=== PATIENT | male | born 1950 | race Caucasian/White ===

== ENCOUNTER 2018-02-09 10:26 | Emergency (ER) | payer BC, MEDICARE, OTHER ==
[~2018-02-09] VITALS: Ht 180.3 cm; Wt 91.5 kg
[~2018-02-09 10:26] MED LIST: DICL50 PO; LEVA500T33 PO; LORTA5 PO; PREG300 PO
[2018-02-09 10:28] VITALS: BP 148/80; PULSE 86; RESP 18; TEMP 98; O2SAT 100
[2018-02-09] MEDS ORDERED: GABA300C5 PO (10:34)
[2018-02-09] MEDS ORDERED: LIDOCAINE 2% JELLY 30 ML TUBE TOPICAL ONE (11:15)
[2018-02-09] MEDS ORDERED: NORC5TAB PO (11:20)
[2018-02-09] MEDS ORDERED: ANUC25SU RECTAL (11:20)
[2018-02-09] MEDS ORDERED: METR-1 PO (11:21)
[2018-02-09] MEDS ORDERED: CIPR-9 PO (11:21)
--- NOTE | 2018-02-09 11:21 | PD ---
HPI Chief Complaint: Skin Problem Time Seen by Provider: 11:06 Travel History International Travel<30 days: No Contact w/Intl Traveler<30days: No Traveled to known affect area: No History of Present Illness HPI 67-year-old male complains of rectal pain. Patient states that the rectal pain started 5 days ago. Patient states that the pain is worse since then. Patient was seen by a physician yesterday and was not advised any specific treatment. Patient denies any fever chills. Patient denies any blood per rectum. Patient denies a history hemorrhoids. Patient states the pain is burning pain sharp pain localized the rectum area. Patient denies any pain radiation. On a scale of 1-10 the pain is an 8. PFSH Past Medical History Arthritis: Yes Diminished Hearing: No Neurologic: Yes (post herpatic pain) Tetanus Vaccination: < 5 Years ?: Not Past Surgical History Abdominal Surgery: Yes (hernia repair) Social History Alcohol Use: No Tobacco Use: No Substance Use: No Allergies-Medications (Allergen,Severity, Reaction): Coded Allergies: No Known Allergies (Verified Adverse Reaction, Unknown, 02/09/18) Reported Meds & Prescriptions Reported Meds & Active Scripts Active Reported Gabapentin 300 Mg Cap 300 Mg PO TID Review of Systems General / Constitutional: No: Fever Eyes: No: Visual changes HENT: No: Headaches Cardiovascular: No: Chest Pain or Discomfort Respiratory: No: Shortness of Breath Gastrointestinal: No: Abdominal Pain Genitourinary: No: Dysuria Musculoskeletal: No: Pain Skin: No Rash Neurologic: No: Weakness Psychiatric: No: Depression Endocrine: No: Polydipsia Hematologic/Lymphatic: No: Easy Bruising Physical Exam Narrative GENERAL: Well-nourished, well-developed patient. SKIN: Focused skin assessment warm/dry. HEAD: Normocephalic. EYES: No scleral icterus. No injection or drainage. NECK: Supple, trachea midline. No JVD or lymphadenopathy. CARDIOVASCULAR: Regular rate and rhythm without murmurs, gallops, or rubs. RESPIRATORY: Breath sounds equal bilaterally. No accessory muscle use. GASTROINTESTINAL: Abdomen soft, non-tender, nondistended. MUSCULOSKELETAL: No cyanosis, or edema. BACK: Nontender without obvious deformity. No CVA tenderness. Rectal exam reveals internal hemorrhoids with mild bluish discoloration of the mucous membrane. No evidence of active bleeding or thrombosis. Mild tenderness in palpation perirectal area. No induration. Data Data Last Documented VS Vital Signs Date Time Temp Pulse Resp B/P (MAP) Pulse Ox O2 Delivery O2 Flow Rate FiO2 02/09/18 10:28 98.0 86 18 148/80 (102) 100 Orders Orders Lidocaine 2% Jelly (Xylocaine 2% Jelly) (02/09/18 11:15) MDM Medical Decision Making Medical Screen Exam Complete: Yes Emergency Medical Condition: Yes Differential Diagnosis Differential diagnosis including external hemorrhoids, internal hemorrhoids, perirectal cellulitis, perirectal abscess, pilonidal cyst. Narrative Course 67-year-old male with rectal pain. Examination reveals internal hemorrhoids and possible perirectal cellulitis. No evidence of abscess. Diagnosis Primary Impression: Internal hemorrhoid Additional Impression: Perirectal cellulitis Patient Instructions: General Instructions Additional Instructions: Take medication as needed for pain. Stool softener. Sitz bath. Advised patient to follow-up with colorectal surgeon. Return in 2 days for recheck. Return sooner if worse. Med/Other Pt SpecificInfo: Prescription(s) given Scripts Metronidazole (Flagyl) 500 Mg Tab 500 MG PO TID for Infection, #30 TAB 0 Refills Prov: Jules Hutchins MD 02/09/18 Ciprofloxacin (Cipro) 500 Mg Tab 500 MG PO BID for Infection, #20 TAB 0 Refills Prov: Jules Hutchins MD 02/09/18 Hydrocortisone Acetate Supp (Anucort-Hc Supp) 25 Mg Supp 25 MG RECTAL TID for Hemorrhoids, #21 SUPP 0 Refills Prov: Jules Hutchins MD 02/09/18 Hydrocodone-Acetaminophen (Jewett) 5 Mg-325 Mg Tab 1 TAB PO Q6H Y for PAIN, #12 TAB 0 Refills Prov: Jules Hutchins MD 02/09/18 Disposition: 01 DISCHARGE HOME Condition: Stable Jules Hutchins MD February 09, 2018 11:21
== END 2018-02-09 11:34 | disposition home or self-care (01) ==
LOC: PHED 10:26
DX: K64.8 Other hemorrhoids (principal); K61.1 Rectal abscess; M19.90 Unspecified osteoarthritis, unspecified site
CPT/HCPCS: 99283

== ENCOUNTER 2018-02-13 07:36 | Emergency (ER) | payer MEDICARE ==
[~2018-02-13] VITALS: Ht 180.3 cm; Wt 88.8 kg
[~2018-02-13 07:36] MED LIST changes: +ANUC25SU RECTAL; +CIPR-9 PO; -DICL50 PO; +GABA300C5 PO; -LEVA500T33 PO; -LORTA5 PO; +METR-1 PO; +NORC5TAB PO; -PREG300 PO
[2018-02-13 07:43] VITALS: BP 165/82; PULSE 100; RESP 16; TEMP 98.6; O2SAT 98
[2018-02-13] MEDS ORDERED: MORPHINE SULFATE 8 MG/ML INJ IV PUSH ONE (08:15)
[2018-02-13] MEDS ORDERED: LIDOCAINE HCL 1% 50 ML VIAL INFIL ONE (08:15)
--- NOTE | 2018-02-13 08:24 | PD ---
HPI Chief Complaint: GI Complaint Time Seen by Provider: 07:57 Travel History International Travel<30 days: No Contact w/Intl Traveler<30days: No Traveled to known affect area: No History of Present Illness HPI 67yo M with no significant PMH presents to the ED with c/o worsening rectal pain. Pt was seen here on 02/09/18 for rectal pain and was diagnose with internal hemorrhoids and possible perirectal cellulitis. Pt was given flagyl, cipro, hydrocortisone acetate and narco. Said he has been taking the medications but it is getting worst. Pt has been having low grade fever at home and unable to eat anything. Denies any chest pain, sob, n/v, abdominal pain. Stool has been normal but there is a lot of pain while having bowel movement. PFSH Past Medical History Arthritis: Yes Diminished Hearing: No Neurologic: Yes (post herpatic pain) Past Surgical History Abdominal Surgery: Yes (hernia repair) Social History Alcohol Use: No Tobacco Use: No Substance Use: No Allergies-Medications (Allergen,Severity, Reaction): Coded Allergies: No Known Allergies (Verified Adverse Reaction, Unknown, 02/13/18) Reported Meds & Prescriptions Reported Meds & Active Scripts Active Hydrocodone-Acetamin 5-325 mg (Hydrocodone/Acetaminophen) 5 Mg-325 Mg Tablet 1 Tab PO Q6HR PRN Flagyl (Metronidazole) 500 Mg Tab 500 Mg PO TID Cipro (Ciprofloxacin HCl) 500 Mg Tab 500 Mg PO BID Anucort-Hc Supp (Hydrocortisone Acetate Supp) 25 Mg Supp 25 Mg RECTAL TID Creole (Hydrocodone-Acetaminophen) 5 Mg-325 Mg Tab 1 Tab PO Q6H PRN Reported Gabapentin 300 Mg Cap 300 Mg PO TID Review of Systems Except as stated in HPI: all other systems reviewed are Neg Physical Exam Narrative GENERAL: 67yo M in moderate distress. SKIN: Focused skin assessment warm/dry. HEAD: Atraumatic. Normocephalic. CARDIOVASCULAR: Regular rate and rhythm. No murmur appreciated. RESPIRATORY: No accessory muscle use. Clear to auscultation. Breath sounds equal bilaterally. GASTROINTESTINAL: Abdomen soft, non-tender, nondistended. No rebound tenderness or guarding. RECTAL: +Bilateral perirectal erythema. +Large fluctuance in left perirectal region with pointing. MUSCULOSKELETAL: No obvious deformities. No clubbing. No cyanosis. No edema. NEUROLOGICAL: Awake and alert. No obvious cranial nerve deficits. Motor grossly within normal limits. Normal speech. PSYCHIATRIC: Appropriate mood and affect; insight and judgment normal. Data Data Last Documented VS Vital Signs Date Time Temp Pulse Resp B/P (MAP) Pulse Ox O2 Delivery O2 Flow Rate FiO2 02/13/18 12:21 02/13/18 11:51 85 16 96 Room Air 02/13/18 07:43 98.6 Orders Orders Basic Metabolic Panel (Bmp) (02/13/18 08:09) Complete Blood Count With Diff (02/13/18 08:09) Ct Abd/Pel W Iv Contrast(Rout) (02/13/18 08:09) Morphine Inj (Morphine Inj) (02/13/18 08:15) Lidocaine Pf 1% Inj (Xylocaine-Mpf 1% In (02/13/18 08:28) Lidocaine Pf 1% Inj (Xylocaine-Mpf 1% In (02/13/18 08:45) Iohexol 350 Inj (Omnipaque 350 Inj) (02/13/18 10:34) Ed Discharge Order (02/13/18 12:12) Labs Laboratory Tests Test 02/13/18 08:15 White Blood Count 13.1 TH/MM3 Red Blood Count 4.91 MIL/MM3 Hemoglobin 14.4 GM/DL Hematocrit 42.7 % Mean Corpuscular Volume 87.0 FL Mean Corpuscular Hemoglobin 29.4 PG Mean Corpuscular Hemoglobin Concent 33.8 % Red Cell Distribution Width 12.0 % Platelet Count 247 TH/MM3 Mean Platelet Volume 8.5 FL Neutrophils (%) (Auto) 85.3 % Lymphocytes (%) (Auto) 8.1 % Monocytes (%) (Auto) 6.1 % Eosinophils (%) (Auto) 0.3 % Basophils (%) (Auto) 0.2 % Neutrophils # (Auto) 11.2 TH/MM3 Lymphocytes # (Auto) 1.1 TH/MM3 Monocytes # (Auto) 0.8 TH/MM3 Eosinophils # (Auto) 0.0 TH/MM3 Basophils # (Auto) 0.0 TH/MM3 CBC Comment DIFF FINAL Differential Comment Blood Urea Nitrogen 19 MG/DL Creatinine 1.00 MG/DL Random Glucose 125 MG/DL Calcium Level 8.9 MG/DL Sodium Level 141 MEQ/L Potassium Level 3.8 MEQ/L Chloride Level 105 MEQ/L Carbon Dioxide Level 26.8 MEQ/L Anion Gap 9 MEQ/L Estimat Glomerular Filtration Rate 74 ML/MIN MDM Medical Decision Making Medical Screen Exam Complete: Yes Emergency Medical Condition: Yes Differential Diagnosis Perirectal abscess and cellulitis vs. deeper rectal abscess vs. electrolyte abnormality vs. dehydration Narrative Course 67yo M with worsening rectal pain here found to have left perirectal abscess. Pt said he has not eaten for 5 days so will check labs including electrolytes. There is a large fluctuance in left perirectal region that needs to be drained but would do CT a/p+ to evaluate how deep the abscess is first. Pt given morphine for pain. There was a delay in CT scan so I decided to do I&D of left perirectal abscess first. Labs reviewed, mild leukocytosis at 13.1. H/H normal. CT a/p showed mild inflammation with bilateral perianal lower density septated collections measuring 3cm on the right and 2.9cm on the left. There is a focus of air in the caudal aspect of the left collection. That is because I drained it and place packing. Mild sigmoid diverticulosis without inflammatory changes. The appendix is normal. Bowel otherwise unremarkable. There are multiple subcentimeter hypodense lesion in liver and further evaluation with MRI liver mass may be needed. Informed pt to follow up as outpatient. There is redness and some fluctuance on right perianal area but significantly less than the left and I offered to do I&D of right but patient said he does not want to endure it again today. Said he will come back in 2 days for packing removal on left and if the right needs to be drain, then will drain that day. Pt has pain mainly on left and now is feeling better. Instructed pt to follow up with general surgery but to return to the ED if unable to follow up in 2 days. Return precautions given. Procedures Procedure Narrative INCISION AND DRAINAGE OF ABSCESS: The area was prepped and was sterilely draped. A subcutaneous wheal of 1 % Xylocaine with a total number 8 mL was used to anesthetize the area properly. A number 11 scalpel was used to make a 1 -cm incision across the area of the abscess. The abscess was drained, complex loculations were broken down. Quarter inch iodoform packing was placed in the wound. Patient advised to have packing removed in two days. Diagnosis Primary Impression: Perirectal abscess Referrals: Alex Camp MD call for appointment Perirectal abscess Patient Instructions: General Instructions Departure Forms: Tests/Procedures Additional Instructions: Please return to the ED or general surgery clinic in 2 days for packing removal and evaluation of right perirectal region for possible additional incision and drainage. Please follow up with your primary care physician for further evaluation of the hypodense lesions in in your liver in the CT scan today. Please continue the antibiotics that you are taking. Return to the ED if symptoms worsen. Med/Other Pt SpecificInfo: Prescription(s) given Scripts Hydrocodone/Acetaminophen (Hydrocodone-Acetamin 5-325 mg) 5 Mg-325 Mg Tablet 1 TAB PO Q6HR Y for PAIN SCALE 1 TO 4, #7 Prov: Clementine Ram DO 02/13/18 Disposition: 01 DISCHARGE HOME Condition: Stable Clementine Ram DO February 13, 2018 08:24
[2018-02-13] MEDS ORDERED: LIDOCAINE HCL 1% PF 30 ML VIAL ONE (08:28)
[2018-02-13] MEDS ORDERED: LIDOCAINE HCL 1% 30 ML VIAL INFIL ONE (08:30)
[2018-02-13 08:39] LABS: AUTOMATED NEUTROPHIL # 11.2 TH/MM3 (1.8-7.7); BASOPHIL % 0.2 % (0.0-2.0); EOSINOPHIL % 0.3 % (0.0-4.0); HEMATOCRIT 42.7 % (39.0-51.0); HEMOGLOBIN 14.4 GM/DL (13.0-17.0); LYMPH % 8.1 % (9.0-44.0); LYMPHOCYTE # 1.1 TH/MM3 (1.0-4.8); MEAN CORPUSCULAR HEMOGLOBIN 29.4 PG (27.0-34.0); MEAN CORPUSCULAR HGB CONC 33.8 % (32.0-36.0); MEAN PLATELET VOLUME 8.5 FL (7.0-11.0); MONO % 6.1 % (0.0-8.0); MONOCYTE # 0.8 TH/MM3 (0-0.9); NEUT % 85.3 % (16.0-70.0); PLATELET COUNT 247 TH/MM3 (150-450); RED BLOOD COUNT 4.91 MIL/MM3 (4.50-5.90); WHITE BLOOD COUNT 13.1 TH/MM3 (4.0-11.0)
[2018-02-13] MEDS ORDERED: LIDOCAINE HCL 1% PF 30 ML VIAL INFIL ONE (08:45)
[2018-02-13 10:13] LABS: BICARBONATE 26.8 MEQ/L (21.0-32.0); CALCIUM 8.9 MG/DL (8.5-10.1)
[2018-02-13] MEDS ORDERED: IOHEXOL 350 MG/ML 10 ML VIAL (for RAD DIAG) IVCONTRAST ONE (10:34)
--- NOTE | 2018-02-13 11:02 | RADRPT ---
EXAM DATE/TIME: 02/13/2018 10:27 [facility] COMPARISON: No previous studies available for comparison. INDICATIONS : Perirectal pain. Hemorrhoids one week ago. IV CONTRAST: 95 cc Omnipaque 350 (iohexol) IV ORAL CONTRAST: No oral contrast ingested. RADIATION DOSE: 13.37 CTDIvol (mGy) MEDICAL HISTORY : None SURGICAL HISTORY : Hernia repair. ENCOUNTER: Initial ACUITY: 1 week PAIN SCALE: 5/10 LOCATION: pelvis TECHNIQUE: Volumetric scanning of the abdomen and pelvis was performed. Using automated exposure control and ad justment of the mA and/or kV according to patient size, radiation dose was kept as low as reasonably achievable to obtain optimal diagnostic quality images. DICOM format image data is available electro nically for review and comparison. FINDINGS: LOWER LUNGS: Minimal airspace consolidation and volume loss at the right lung base. LIVER: Several scattered subcentimeter hypodense lesions in the right lobe of the liver. Additionally, 1.6 c m hypodense lesion in the subcapsular segment 2 of the liver. No intrahepatic ductal dilatation. No c alcified gallstones. SPLEEN: Normal size without lesion. PANCREAS: Within normal limits. KIDNEYS: Normal in size and shape. There is no mass, stone or hydronephrosis. ADRENAL GLANDS: Within normal limits. VASCULAR: There is no aortic aneurysm. BOWEL/MESENTERY: Bilateral perianal stranding with small low density collections measuring 3 cm on the right and 2.9 c m on the left. There is a focus of air in the caudal aspect of the left collection. Mild sigmoid dive rticulosis without inflammatory changes. The appendix is visualized and normal in appearance. Bowel o therwise appears unremarkable. No evidence for bowel obstruction or significant bowel wall thickening . ABDOMINAL WALL: Small fat containing periumbilical anterior abdominal wall hernia. RETROPERITONEUM: There is no lymphadenopathy. BLADDER: No wall thickening or mass. REPRODUCTIVE: Nonspecific prominence of the prostate gland containing coarse calcifications. INGUINAL: There is no lymphadenopathy or hernia. MUSCULOSKELETAL: Degenerative spondylosis of the lumbar spine. CONCLUSION: 1. Mild inflammation with bilateral perianal low density septated collections measuring 3 sinus on th e right and 2.9 cm on the left. The left collection is a very small focus of air in the caudal aspect of the collection. Uncertain if these reflect inflamed hemorrhoids or developing perianal abscesses. Clinical correlation is recommended. Please note that CT is of limited utility in evaluation of steven anal disease. 2. Multiple subcentimeter hypodense hepatic lesions which are too small to fully characterize. There is however a 1.6 cm hypodense lesion in the subcapsular segment 2 of the liver with indeterminate den sity. Further characterization may be performed with MRI liver mass protocol as clinically appropriat e. 3. Additional ancillary findings, as above. Ganesh Crawford MD on February 13, 2018 at 10:42 Board Certified Radiologist. This report was verified electronically.
[2018-02-13 11:51] VITALS: BP 145/86; PULSE 85; RESP 16; O2SAT 96
[2018-02-13] MEDS ORDERED: HYDR-3516 PO (12:11)
== END 2018-02-13 12:21 | disposition home or self-care (01) ==
LOC: PHED 07:36
DX: K61.1 Rectal abscess (principal); D72.829 Elevated white blood cell count, unspecified; K57.30 Diverticulosis of large intestine without perforation or abscess without bleeding; M19.90 Unspecified osteoarthritis, unspecified site; Z79.899 Other long term (current) drug therapy
CPT/HCPCS: 10061; 74177; 80048; 85025; 96374; 99284; J2270; Q9967